=== PATIENT | female | born 1965 | race Caucasian/White ===

== ENCOUNTER 2020-11-04 07:12 | Day surgery (SDC) | payer OTHER ==
[~2020-11-04] VITALS: Ht 157.5 cm; Wt 61.2 kg
--- NOTE | ~2020-11-04 | OP ---
PATIENT NAME: LUIS FERNANDO VASQUES MEDICAL RECORD: [id number] :65 LOCATION:D.OPS ADMISSION DATE: SURGEON: ROMEL OLIVEROS DPM DATE OF OPERATION: 11/04/2020 PREOPERATIVE DIAGNOSES: 1. Hallux abducto valgus, right foot. 2. First metatarsal cuneiform joint instability. 3. Cyst plantar aspect of the right foot. POSTOPERATIVE DIAGNOSES: 1. Hallux abducto valgus, right foot. 2. First metatarsal cuneiform joint instability. 3. Cyst plantar aspect of the right foot. PROCEDURES: 1. Castillo bunionectomy, right foot. 2. First met cuneiform joint fusion, right foot. 3. Excision of cyst, plantar aspect of the right foot. ANESTHESIA: Preoperative popliteal block per the anesthesia department as well as intraoperative injection of 8 cc of Sensorcaine with epinephrine along the medial ankle. HEMOSTASIS: Ankle Esmarch, right side. PATHOLOGY: Specimen sent for gross and micro identification. PREOPERATIVE DETAILS: The patient was taken to the OR and placed on the operating table in a supine position. This was followed by induction of general anesthesia. The right extremity was then prepped and draped in the usual aseptic technique. This was followed by infiltration of the local anesthetic around the medial anterior ankle. At this time, Esmarch was applied around the ankle. PROCEDURE #1: Castillo bunionectomy, right foot. A #15 blade was used to create an incision from the dorsal aspect of the base of the proximal phalanx of the hallux to the dorsal aspect of the medial cuneiform. The incision was deepened down through subcutaneous tissue to the first MPJ. An inverted L capsulotomy was performed and a medial capsular flap was reflected. The head of the first metatarsal was delivered. A sagittal saw was used to resect the medial eminence. Attention was then directed to the first interspace where a lateral release was performed. Good clinical reduction of the lateral contracture was verified. There was noted to be some ectopic bone and bone spurring on the dorsal aspect of the head of the first metatarsal, which I did remove with a rongeur and smoothed with a bone rasp. PROCEDURE #2: First met cuneiform joint fusion, right foot. Utilizing the incision as described IN #1, the dissection was carried down to the periosteum where a periosteal incision was made. The first met cuneiform joint was delivered. A sagittal saw was used to resect the joint. Temporary fixation was used to place and hold the joint. Good alignment was noted. Therefore, a 5-hole plate with one screw crossing through the plate across the fusion site was placed under excellent rigid internal fixation. C-arm was used to verify good placement as well as alignment of the first ray. The wound was flushed. OPERATIVE REPORT [id number] LUIS FERNANDO VASQUES The joint capsule as well as the periosteum and deep tissue was reapproximated with 2-0 Vicryl, the subcutaneous tissue with 4-0 Rapide and the skin was closed with 4-0 Rapide in a subcuticular technique. PROCEDURE #3: Removal of cyst, plantar aspect of the right foot. Overlying the cyst on the plantar aspect of the right foot, an incision was made along the Janak's lines, approximately 2 cm in length. The dissection was carried down to the cyst. The cyst was freed from the surrounding soft tissue structures and came out very nicely in total. The wound was flushed. The specimen was sent to pathology. The wound was closed with simple interrupted sutures. Adaptic, 4 x 4 and Conform were used to dress all the wounds followed by application of modified Hilliard compression dressing. The Esmarch was removed. POSTOPERATIVE DETAILS: The patient tolerated the procedure well and left the OR with vital signs stable and vascular status at preoperative levels. The patient was transported to recovery per anesthesia in stable condition. TRANSINT:[id number] Voice Confirmation ID: [id number] DOCUMENT ID: [id number] ROMEL OLIVEROS DPM CC: [id number] DICTATION DATE: 11/04/20 1322 SENIOR SQL SERVER DEVELOPER: 11/04/20 1554 [facility] [address] [place] [address]
[~2020-11-04 07:12] MED LIST: LOTREL 5/10 MG1 CAP PO
[2020-11-04 07:40] LABS: BASOPHILS 1.2 % (0-2); EOSINOPHILS 7.6 % (0-7); HEMOGLOBIN 14.2 g/dL (12-16); LYMPHOCYTES 35.6 % (15-50); MCH 29.9 pg (26.0-34.0); MCHC 33.8 g/dL (31.0-37.0); MCV 88.7 fL (80.0-100.0); MEAN PLATELET VOLUME 6.2 fL (7.4-10.4); MONOCYTES 10.2 % (2-11); NEUTROPHILS 45.4 % (40-80); PLATELET COUNT 319 10x3/uL (130-400); RBC 4.74 10x6/uL (4.00-5.40); RDW 13.5 % (11.5-14.5); WBC 6.4 10x3/uL (4.8-10.8)
[2020-11-04 07:54] LABS: ANION GAP 10.6 mmol/L (8-16); CALCIUM 8.6 mg/dL (8.5-10.1); CARBON DIOXIDE 26.6 mmol/L (21.0-32.0); CREATININE - SERUM 0.9 mg/dL (0.6-1.3); POTASSIUM - SERUM 4.2 mmol/L (3.5-5.1)
[2020-11-04 08:27] VITALS: BP 128/99; Ht 157.5 cm; Wt 61.2 kg
--- NOTE | 2020-11-04 14:08 | NUR ---
1405 PT'S RIDEFRANCIS, NOTIFIED OF PT. RETURNING TO [facility] [place][note 3] AND HER TIME OF RELEASE WILL BE APPROXIMATELY 1 HOUR IF ALL IS WELL.
--- NOTE | 2020-11-04 14:19 | NUR ---
1415 PT DROPPED HER O2 SAT TO 80 WHILE SNORING, AWAKEN PT AND O2 SAT QUICKLY RETURNED TO 96% ON ROOM AIR.
--- NOTE | 2020-11-04 14:21 | NUR ---
1421 O2 PLACED ON PT. AT 2L NC. PT. OFTEN FALLS ASLEEP WITH SNORING WHEN UNSTIMULATED AND O2 SAT FALLS BELOW 90%. SAT 94% WHILE SEEPING ON O2 AT 2L NC.
--- NOTE | 2020-11-04 17:54 | NUR ---
1530 PT ON RA AND SNORING ASLEEP SITTING UP IN BED. CALL LIGHT IN REACH. GOOD CAP REFILL TO LARGE TOE ON RIGHT FOOT. 1600 ASSITED ON BEDPAN. PT TOO SLEEPY TO WALK WITH WALKER. 1625 MEDICATED FOR NAUSEA. IVF BOLUS GIVEN. 1708 ANESTHESIA NOTIFIED AND SAW PT. PT FALLS TO SLEEP EASILY. 1730 IV REMOVED AND INSTRUCTIONS GIVEN.
== END 2020-11-04 17:45 | disposition home or self-care (01) ==
LOC: D.OPS 07:12
PROVIDERS: Anesthesiology; ATTEND Podiatrist
DX: M20.11 Hallux valgus (acquired), right foot (principal); M25.374 Other instability, right foot; M72.2 Plantar fascial fibromatosis; I10 Essential (primary) hypertension; F17.200 Nicotine dependence, unspecified, uncomplicated